=== PATIENT | female | born 1995 | race Caucasian/White ===

== ENCOUNTER 2021-07-22 10:23 | Outpatient (CLI) | payer SELFPAY ==
[2021-07-22 10:36] LABS: Basophils Absolute Auto 0.02 K/mm3 (0.00-0.10); Basophils Percent Auto 0.3 % (0.0-1.0); Eosinophils Absolute Auto 0.13 K/mm3 (0.02-0.50); Eosinophils Percent Auto 1.7 % (1.0-6.0); Hematocrit 42.4 % (35.0-49.0); Hemoglobin 14.3 g/dL (12.0-15.0); Immature Granulocyte Absolute 0.03 K/mm3 (0.00-0.00); Immature Granulocyte Percent A 0.4 % (0.0-0.0); Lymphocytes Absolute Auto 2.42 K/mm3 (1.10-4.50); Lymphocytes Percent Auto 31.5 % (18.0-42.0); Mean Corpuscular HGB Conc 33.7 g/dL (32.0-36.0); Mean Corpuscular Hemoglobin 31.2 pg (27.0-31.0); Mean Corpuscular Volume 92.6 fL (78.0-102.0); Mean Platelet Volume 9.5 fl (9.2-11.8); Monocytes Absolute Auto 0.64 K/mm3 (0.10-0.90); Monocytes Percent Auto 8.3 % (2.0-11.0); Neutrophils Absolute Auto 4.4 K/mm3 (1.7-7.2); Neutrophils Percent Auto 57.8 % (50.0-70.0); Platelet Count Result 319 K/mm3 (150-420); Red Blood Count 4.58 M/mm3 (4.20-5.40); White Blood Count 7.7 K/mm3 (4.8-10.8)
[2021-07-22 11:05] LABS: Alanine Aminotransferase 25 U/L (14-59); Albumin Level 4.4 g/dL (3.4-5.0); Alkaline Phosphatase 43 U/L (46-116); Anion Gap 12 mmol/L (8-16); Aspartate Amino Transferase 14 U/L (15-37); Bilirubin,Total 0.3 mg/dL (0.00-1.00); Blood Urea Nitrogen 12 mg/dL (7-18); Calcium 8.9 mg/dL (8.5-10.1); Carbon Dioxide 26 mmol/L (21-32); Chloride 103 mmol/L (98-108); Estimated Glomerular Filt Rate > 60; Glucose 91 mg/dL (70-99); Osmolality Calculated 291 mOsm/kg (285-295); Potassium 4.4 mmol/L (3.5-5.1); Sodium 141 mmol/L (136-145); Total Protein 7.3 g/dL (6.4-8.2)
== END 2021-07-22 10:24 | disposition home or self-care (01) ==
PROVIDERS: PCP Obstetrics & Gynecology; Visit Provider Nurse Practitioner Family
DX: N93.9 Abnormal uterine and vaginal bleeding, unspecified (principal); Z33.1 Pregnant state, incidental
CPT/HCPCS: 36415; 80053; 84702; 85025

== ENCOUNTER 2021-07-24 10:00 | Outpatient (CLI) | payer BC, SELFPAY | END 2021-07-24 10:01 | disposition home or self-care (01) | LOC: CHSLAB 10:02 | PROVIDERS: PCP Obstetrics & Gynecology; Visit Provider Obstetrics & Gynecology | DX: O26.859 Spotting complicating pregnancy, unspecified trimester (principal) | CPT/HCPCS: 36415; 84702 ==

== ENCOUNTER 2021-07-26 13:04 | Outpatient (CLI) | payer BC, SELFPAY ==
--- NOTE | ~2021-07-26 | US_ITS ---
EXAMINATION: US pelvic complete w TV DATE: 07/26/2021 13:43 INDICATION: Recent failure TECHNIQUE: Multiple transabdominal and endovaginal sonographic images of the pelvis were obtained. COMPARISON: None. FINDINGS: The uterus measures 6.6 x 3.6 x 5.9 cm. The endometrial complex measures 2 mm. The right ov sarah measures 3.6 x 1.7 x 1.8 cm. The left ovary measures 3.9 x 2.6 x 1.8 cm. There is normal vascular flow in the ovaries. There is a trace amount of likely physiologic free fluid in the pelvis. IMPRESSION: 1. Unremarkable pelvic ultrasound. Reviewed, dictated and finalized at location B.
== END 2021-07-26 13:05 | disposition home or self-care (01) ==
PROVIDERS: PCP Obstetrics & Gynecology; Visit Provider Nurse Practitioner Family
DX: N93.9 Abnormal uterine and vaginal bleeding, unspecified (principal)
CPT/HCPCS: 76830; 76856

== ENCOUNTER 2021-08-02 09:53 | Outpatient (CLI) | payer BC, SELFPAY | END 2021-08-02 09:54 | disposition home or self-care (01) | LOC: CHSLAB 09:55 | PROVIDERS: PCP Obstetrics & Gynecology; Visit Provider Nurse Practitioner Family | DX: O03.9 Complete or unspecified spontaneous abortion without complication (principal) | CPT/HCPCS: 36415; 84702; 86850; 86900; 86901 ==

== ENCOUNTER 2021-10-26 13:39 | Outpatient (CLI) | payer BC, SELFPAY ==
[2021-10-26 13:52] LABS: Basophils Absolute Auto 0.03 K/mm3 (0.00-0.10); Basophils Percent Auto 0.3 % (0.0-1.0); Eosinophils Absolute Auto 0.15 K/mm3 (0.02-0.50); Eosinophils Percent Auto 1.5 % (1.0-6.0); Hematocrit 41.2 % (35.0-49.0); Hemoglobin 13.8 g/dL (12.0-15.0); Immature Granulocyte Absolute 0.03 K/mm3 (0.00-0.00); Immature Granulocyte Percent A 0.3 % (0.0-0.0); Lymphocytes Absolute Auto 2.49 K/mm3 (1.10-4.50); Lymphocytes Percent Auto 25.2 % (18.0-42.0); Mean Corpuscular HGB Conc 33.5 g/dL (32.0-36.0); Mean Corpuscular Hemoglobin 31.1 pg (27.0-31.0); Mean Corpuscular Volume 92.8 fL (78.0-102.0); Mean Platelet Volume 10.1 fl (9.2-11.8); Monocytes Absolute Auto 0.85 K/mm3 (0.10-0.90); Monocytes Percent Auto 8.6 % (2.0-11.0); Neutrophils Absolute Auto 6.4 K/mm3 (1.7-7.2); Neutrophils Percent Auto 64.1 % (50.0-70.0); Platelet Count Result 278 K/mm3 (150-420); Red Blood Count 4.44 M/mm3 (4.20-5.40); Red Cell Distribution Width 12.3 % (11.6-14.4); White Blood Count 9.9 K/mm3 (4.8-10.8)
[2021-10-26 14:37] LABS: Alanine Aminotransferase 23 U/L (14-59); Alkaline Phosphatase 39 U/L (46-116); Anion Gap 9 mmol/L (8-16); Aspartate Amino Transferase 13 U/L (15-37); Bilirubin,Total 0.3 mg/dL (0.00-1.00); Blood Urea Nitrogen 11 mg/dL (7-18); Carbon Dioxide 28 mmol/L (21-32); Chloride 101 mmol/L (98-108); Estimated Glomerular Filt Rate > 60; Glucose 81 mg/dL (70-99); Osmolality Calculated 284 mOsm/kg (285-295); Potassium 4.6 mmol/L (3.5-5.1); Sodium 138 mmol/L (136-145); Thyroid Stimulating Hormone 1.49 uIU/mL (0.36-3.74); Total Protein 6.7 g/dL (6.4-8.2)
[2021-10-26 14:40] LABS: SPREG INTERNAL CONTROL Positive; Serum Qual hCG Positive
[2021-10-26 14:42] LABS: Calcium 8.8 mg/dL (8.5-10.1)
== END 2021-10-26 13:40 | disposition home or self-care (01) ==
LOC: CHSLAB 13:40
PROVIDERS: PCP Internal Medicine; Visit Provider Internal Medicine
DX: N91.2 Amenorrhea, unspecified (principal)
CPT/HCPCS: 36415; 80053; 84443; 84703; 85025

== ENCOUNTER 2021-11-28 17:49 | Outpatient (CLI) | payer BC, SELFPAY | END 2021-11-28 17:50 | disposition home or self-care (01) | LOC: CHSLAB 17:51 | PROVIDERS: PCP Obstetrics & Gynecology; Visit Provider Nurse Practitioner Family | DX: Z32.01 Encounter for pregnancy test, result positive (principal) | CPT/HCPCS: 36415; 84702 ==

== ENCOUNTER 2021-11-30 09:55 | Outpatient (CLI) | payer BC, SELFPAY | END 2021-11-30 09:56 | disposition home or self-care (01) | LOC: CHSLAB 09:56 | PROVIDERS: PCP Internal Medicine; Visit Provider Obstetrics & Gynecology | DX: N91.2 Amenorrhea, unspecified (principal) | CPT/HCPCS: 36415; 84702 ==

== ENCOUNTER 2021-12-03 11:32 | Outpatient (CLI) | payer BC, SELFPAY | END 2021-12-03 11:33 | disposition home or self-care (01) | LOC: CHSLAB 11:34 | PROVIDERS: PCP Internal Medicine; Visit Provider Obstetrics & Gynecology | DX: N91.2 Amenorrhea, unspecified (principal) | CPT/HCPCS: 36415; 84702 ==

== ENCOUNTER 2022-02-23 12:42 | Outpatient (CLI) | payer BC, SELFPAY ==
--- NOTE | ~2022-02-23 | US_ITS ---
US OB limited 02/23/2022 13:15 Indication: Abnormal amniotic fluid. Procedure: High-resolution Limited obstetrical ultrasound using transabdominal technique Comparison: No prior studies for comparison. Findings: There is a single living intrauterine in breech presentation with heart rat e of 139 BPM. Placenta is anterior measuring 1 cm to the cervix. Amniotic fluid is subjectively april l with REMEDIOS of 7.4 cm. Impression: 1: Single living intrauterine in breech presentation. 2: Amniotic fluid volume is subjectively normal. Reviewed, dictated and finalized at location A. Impression: 1: Single living intrauterine in breech presentation. 2: Amniotic fluid volume is subjectively normal.
== END 2022-02-23 12:43 | disposition home or self-care (01) ==
LOC: CHSIMG 12:43
PROVIDERS: PCP Obstetrics & Gynecology; Visit Provider Obstetrics & Gynecology
DX: R89.8 Other abnormal findings in specimens from other organs, systems and tissues (principal)
CPT/HCPCS: 76815

== ENCOUNTER 2022-05-02 13:51 | Outpatient (CLI) | payer BC, SELFPAY ==
--- NOTE | ~2022-05-02 | US_ITS ---
EXAMINATION: US OB follow up DATE: 05/02/2022 15:10 INDICATION: Normal third trimester of . TECHNIQUE: Real-time ultrasound of the pelvis was performed. COMPARISON: Ultrasound 02/23/2022 FINDINGS: There is a single living fetus in vertex presentation. The placenta is anterior, 4.9 cm from the cer vix. The cervical length is 3.4 cm on transabdominal images, which is normal. heart rate is 119 beats per minute (bpm). The amniotic fluid index is 20.9 cm, which is normal. The following biometric data were obtained: Biparietal diameter (BPD): 6.1 cm; head circumference (HC): 23.3 cm; abdominal circumference (AC): 19 .8 cm; femur length (FL): 4.4 cm. These measurements are concordant. Estimated weight is 708 g +/- 106 g, which correlates with the <3rd percentile when 08/06/22 is used as estimated date of delivery. As single measurements, these parameters are each equal to the following estimated gestational ages: BPD: 24 weeks 6 days. HC: 25 weeks 2 days. AC: 24 weeks 3 days. FL: 24 weeks 3 days. estimated gestational age based solely on measurements from this exam is 24 weeks 5 days +/- 1 weeks 5 days. IMPRESSION: 1. Single living fetus in vertex presentation. 2. Small for gestational age. Estimated weight is 708 g +/- 106 g, which correlates with the < 3rd percentile when 08/06/22 is used as estimated date of delivery. Reviewed, dictated and finalized at location A. IMPRESSION: 1. Single living fetus in vertex presentation. 2. Small for gestational age. Estimated weight is 708 g +/- 106 g, which correlates with the <3rd percentile when 08/06/22 is used as estimated date of delivery.
== END 2022-05-02 13:52 | disposition home or self-care (01) ==
LOC: CHSIMG 13:53
PROVIDERS: PCP Obstetrics & Gynecology; Visit Provider Obstetrics & Gynecology
DX: Z34.03 Encounter for supervision of normal first pregnancy, third trimester (principal)
CPT/HCPCS: 76816

== ENCOUNTER 2022-06-29 08:34 | Outpatient (CLI) | payer BC, SELFPAY ==
--- NOTE | ~2022-06-29 | US_ITS ---
EXAMINATION: US OB follow up DATE: 06/29/2022 09:00 INDICATION: Maternal care for known or suspected poor growth TECHNIQUE: Real-time ultrasound of the pelvis was performed. The interpreting radiologist was not pre sent for the study. COMPARISON: 05/02/2022 FINDINGS: There is a single living fetus in vertex presentation. The placenta is anterior. heart rate is 154 beats per minute (bpm). The amniotic fluid index is 14.0 cm, which is normal (5th%-95%: 8.1-24. 9 cm at 24 weeks estimated gestational age). The following biometric data were obtained: BPD: 8.4 cm -> 33 weeks 5 days Head circumference: 31.0 cm -> 34 weeks 4 days Abdominal circumference: 28.0 cm -> 32 weeks 0 days Femur length: 6.3 cm -> 32 weeks 3 days These measurements are concordant. Head circumference to abdominal circumference ratio: 1.11 (normal range 0.96-1.11). Estimated weight: 1998 g (+/-) 300 g or 4 lbs. 6 oz. (+/-) 11 oz. IMPRESSION: 1. Single living fetus in vertex presentation with heart rate of 154 bpm. 2. Normal amniotic fluid index of 14.0 cm. 3. Estimated weight is 6th percentile by Hadlock criteria when 08/06/2022 is used as the estima eladio date of delivery ([facility]). This is slightly increased from <3rd percentile the time of the prior katherine dy. Please correlate with clinical information or earlier ultrasounds for most accurate [facility]. Reviewed, dictated and finalized at location A. IMPRESSION: 1. Single living fetus in vertex presentation with heart rate of 154 bpm. 2. Normal amniotic fluid index of 14.0 cm. 3. Estimated weight is 6th percentile by Hadlock criteria when 08/06/2022 is used as the estimated date of delivery ([facility]). This is slightly increased fr om <3rd percentile the time of the prior study. Please correlate with clinical information or earlier ultrasounds for most accurate [facility].
== END 2022-06-29 08:35 | disposition home or self-care (01) ==
LOC: CHSIMG 08:35
PROVIDERS: PCP Obstetrics & Gynecology; Visit Provider Obstetrics & Gynecology
DX: O36.5999 Maternal care for other known or suspected poor fetal growth, unspecified trimester, other fetus (principal)
CPT/HCPCS: 76816

== ENCOUNTER 2025-09-10 17:13 | Outpatient (CLI) | payer SELFPAY ==
--- NOTE | ~2025-09-10 | XR_ITS ---
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 Technique: 2 views obtained. Findings: The lungs are clear, no effusion. No pneumothorax. Heart is normal size. Mediastinal and hilar contours are within normal limits. Bony thorax no acute abnormality. Impression: No acute cardiopulmonary abnormality. Reviewed, dictated and finalized at location P. A MARKETING MANAGER Impression: No acute cardiopulmonary abnormality.
== END 2025-09-10 17:14 | disposition home or self-care (01) ==
LOC: CHSIMG 17:16
PROVIDERS: PCP Nurse Practitioner Family; Visit Provider Nurse Practitioner Family
DX: J45.909 Unspecified asthma, uncomplicated (principal)
CPT/HCPCS: 71046